=== PATIENT | male | born 1980 | race Caucasian/White ===

== ENCOUNTER 2022-08-05 12:43 | Emergency (ER) | payer SELFPAY ==
[~2022-08-05] VITALS: Ht 180.3 cm; Wt 127.0 kg
[2022-08-05] MEDS ORDERED: EPIPEN 2-P0.3 MG/0.3 IM (13:43)
== END 2022-08-05 14:45 | disposition home or self-care (01) ==
LOC: ED 12:43
DX: T78.1XXA Other adverse food reactions, not elsewhere classified, initial encounter (principal); E11.9 Type 2 diabetes mellitus without complications; I10 Essential (primary) hypertension; Z91.013 Allergy to seafood
CPT/HCPCS: 96374; 96375; 99283-25; J0171; J1200; J2930; J7030

== ENCOUNTER 2024-04-10 23:59 | Emergency (ER) | payer OTHER, BC ==
[~2024-04-10] VITALS: Ht 180.3 cm; Wt 123.2 kg
[~2024-04-10 23:59] MED LIST: ALLOPURINOL100 MG PO; AMLODIPINE BESYL5 MG PO; BASAGLAR K100 UNIT/1 SQ; DOXAZOSIN MESYLA2 MG PO; DULOXETINE HCL60 MG PO; EPIPEN 2-P0.3 MG/0.3 IM; FREESTYLE LIBR MC; INDAPAMIDE1.25 MG PO; LISINOPRIL10 MG PO; SIMVASTATIN40 MG PO; TORSEMIDE10 MG PO; XIGDUO XR 10 M1 EACH PO
--- OUTSIDE RECORDS SUMMARY | 2024-04-11 00:06 | XMS ---
PreManage Notification: HYUN MICHELE Security Behavioral Specialist Events No recent Security Events currently on file CRITERIA MET - [facility] - 2 Visits in 30 Days CARE PROVIDERS ABHINAV FERGUSON Nurse Practitioner Current PHONE: Unknown CECILIA COLLAZO Nurse Practitioner Current PHONE: Unknown FUNIM BOURGEOIS Nurse Practitioner: Family Zina ESPINO PHONE: [phone] Mili has no Care Guidelines for this patient. [facility] VISIT COUNT (12 MO.) 2 FABIO Tiwari TOTAL 2 NOTE: Visits indicate total known visits. ED/UCC VISIT TRACKING (12 MO.) 04/11/2024 00:00 [facility] [place] TYPE: Emergency COMPLAINT: - FALL 03/14/2024 22:13 [facility] [place] TYPE: Emergency COMPLAINT: - SOB DIAGNOSES: - Allergy to seafood - Chronic kidney disease, stage 3 unspecified - Hyperlipidemia, unspecified - Hypertensive chronic kidney disease with stage 1 through stage 4 chronic kidney disease, or unspecified chronic kidney disease - bed bug exterminator (current) use of insulin - bed bug exterminator (current) use of oral hypoglycemic drugs - Non-ST elevation (NSTEMI) myocardial infarction - Other chest pain - Other watermelon harvesting supervisor (current) drug therapy - Type 2 diabetes mellitus with diabetic chronic kidney disease - Type 2 diabetes mellitus with hyperglycemia INPATIENT VISIT TRACKING (12 MO.) 03/15/2024 02:39 [facility] Esther FELIX (Esther Santana) TYPE: Intensive Care DIAGNOSES: - Chronic kidney disease, stage 3 unspecified - Essential (primary) hypertension - Gastro-esophageal reflux disease without esophagitis - Ischemic cardiomyopathy - bed bug exterminator (current) use of insulin - Mixed hyperlipidemia - Non-ST elevation (NSTEMI) myocardial infarction - Obstructive sleep apnea (adult) (pediatric) - Type 2 diabetes mellitus with diabetic nephropathy - Type 2 diabetes mellitus without complications - NSTEMI [email or web address]
[2024-04-11] MEDS ORDERED: SIMVASTATIN80 MG (00:16)
[2024-04-11] MEDS ORDERED: CARVEDILOL6.25 MG (00:16)
[2024-04-11] MEDS ORDERED: CLOPIDOGREL75 MG (00:16)
[2024-04-11 01:20] VITALS: BP 161/91
== END 2024-04-11 01:21 | disposition home or self-care (01) ==
LOC: ED 23:59
DX: S89.92XA Unspecified injury of left lower leg, initial encounter (principal); E11.22 Type 2 diabetes mellitus with diabetic chronic kidney disease; I12.9 Hypertensive chronic kidney disease with stage 1 through stage 4 chronic kidney disease, or unspecified chronic kidney disease; N18.30 Chronic kidney disease, stage 3 unspecified; I25.2 Old myocardial infarction; Z91.030 Bee allergy status; Z79.899 Other long term (current) drug therapy; Z79.4 Long term (current) use of insulin; W01.0XXA Fall on same level from slipping, tripping and stumbling without subsequent striking against object, initial encounter
CPT/HCPCS: 73560; 99283

== ENCOUNTER 2024-12-27 09:46 | Emergency (ER) | payer BC ==
[~2024-12-27] VITALS: Ht 180.3 cm; Wt 117.0 kg
[~2024-12-27 09:46] MED LIST changes: +CARVEDILOL6.25 MG; +CLOPIDOGREL75 MG; +SIMVASTATIN80 MG
[2024-12-27] MEDS ORDERED: ALBUTEROL/IPRATROPIUM 3 ML NEB INH ONE (10:00)
[2024-12-27] MEDS ORDERED: RYBELSUS3 MG PO (10:24)
[2024-12-27] MEDS ORDERED: JARDIANCE10 MG PO (10:24)
[2024-12-27 10:36] LABS: BASOPHILS 0.6 % (0.2-1.2); EOSINOPHILS 2.8 % (0.8-7.0); LYMPHOCYTES 12.1 % (21.8-53.1); MCH 25.7 PG (25.7-32.2); MCHC 31.8 g/dL (32.3-36.5); MCV 80.9 fL (79.0-92.2); MONOCYTES 4.3 % (5.3-12.2); NEUTROPHILS 79.9 % (34.0-67.9); RBC 3.77 M/uL (4.63-6.08)
[2024-12-27 11:02] LABS: ALT (SGPT) 19.0 U/L (14-59); AST (SGOT) 14.0 U/L (15-37); GLOMERULAR FILTRATION RATE,EST 22.0 mL/min (>60); PROTEIN, TOTAL 6.9 g/dL (6.4-8.2); UREA NITROGEN 47.0 mg/dL (7-18)
[2024-12-27] MEDS ORDERED: FUROSEMIDE 40 MG/4 ML VIAL IV ONE (12:30)
[2024-12-27] MEDS ORDERED: AZITHROMYCIN 250 MG TAB PO ONE (12:45)
[2024-12-27] MEDS ORDERED: PREDNISONE20 MG PO (14:05)
[2024-12-27] MEDS ORDERED: ZITHROMAX250 MG PO (14:05)
[2024-12-27 14:14] VITALS: BP 180/102
--- NOTE | 2024-12-29 18:23 | EKG ---
[facility] [address] [place] [address] Signed Normal sinus rhythm Nonspecific T wave abnormality Prolonged QT Abnormal ECG When compared with ECG of 15-MAR-2024 00:46, Nonspecific T wave abnormality, worse in Inferior leads Confirmed by Stefan Peres DO ([id number]) on 12/29/2024 6:22:50 PM Electronically Signed By: STEFAN PERES DO 12/29/24 182 PATIENT NAME: HYUN MICHELE Electrocardiogram DATE OF : 80 PHYSICIAN: STEFAN PERES DO REPORT #: [id number] REPORT IS CONFIDENTIAL AND NOT TO BE RELEASED WITHOUT AUTHORIZATION
== END 2024-12-27 14:16 | disposition home or self-care (01) ==
LOC: ED 09:46
PROVIDERS: Emergency Medicine
DX: R06.02 Shortness of breath (principal); I13.0 Hypertensive heart and chronic kidney disease with heart failure and stage 1 through stage 4 chronic kidney disease, or unspecified chronic kidney disease; I50.9 Heart failure, unspecified; J45.909 Unspecified asthma, uncomplicated; E11.22 Type 2 diabetes mellitus with diabetic chronic kidney disease; N18.30 Chronic kidney disease, stage 3 unspecified; I25.2 Old myocardial infarction; Z91.013 Allergy to seafood; Z79.4 Long term (current) use of insulin; Z79.84 Long term (current) use of oral hypoglycemic drugs; Z79.85 Long-term (current) use of injectable non-insulin antidiabetic drugs; Z79.02 Long term (current) use of antithrombotics/antiplatelets; Z79.899 Other long term (current) drug therapy
CPT/HCPCS: 36415; 71045; 80053; 83880; 84484; 85025; 93005; 93010; 94640; 96374; 96375; 99285-25; J1938; J2919